=== PATIENT | male | born 1935 | race Caucasian/White ===

== ENCOUNTER 2018-09-01 11:07 | Inpatient (IN) | payer MEDICARE, OTHER ==
[~2018-09-01] VITALS: Ht 177.8 cm; Wt 88.5 kg
--- NOTE | 2018-09-01 11:48 | NUR ---
JUST CAME FROM [facility] AND THEY DX HIM WITH A BLOOD CLOT IN LEFT LEG
[2018-09-01] MEDS ORDERED: enoxaparin 100mg/ml syringe SUBCUT ONE (13:00)
[2018-09-01] MEDS ORDERED: ATOR40TA PO (13:13)
[2018-09-01] MEDS ORDERED: ASPI-1265 PO (13:13)
[2018-09-01] MEDS ORDERED: MELO7.5T12 PO (13:14)
[2018-09-01] MEDS ORDERED: PANT-47 PO (13:14)
[2018-09-01] MEDS ORDERED: METO25TA6 PO (13:14)
[2018-09-01] MEDS ORDERED: FLO0.4C PO (13:15)
[2018-09-01 13:18] LABS: BASOPHILS # (AUTO) 0.1 X10'3 (0-0.2); BASOPHILS % (AUTO) 1.1 % (0-1); EOSINOPHILS # (AUTO) 0.1 X10'3 (0-0.9); EOSINOPHILS % (AUTO) 2.1 % (0-6); HEMATOCRIT 37.5 % (42.0-52.0); HEMOGLOBIN 12.7 g/dl (14.0-17.9); LYMPHOCYTES # (AUTO) 1.8 X10'3 (1.1-4.8); LYMPHOCYTES % (AUTO) 26.6 % (21-51); MEAN CORPUSCULAR HEMOGLOBIN 31.8 PG (27.0-31.0); MEAN CORPUSCULAR HGB CONC 33.8 g/dL (33.0-36.5); MEAN CORPUSCULAR VOLUME 94.1 FL (78-98); MEAN PLATELET VOLUME 7.1 FL (7.4-10.4); MONOCYTES # (AUTO) 0.4 X10'3 (0-0.9); MONOCYTES % (AUTO) 6.1 % (2-12); NEUTROPHILS # (AUTO) 4.3 X10'3 (1.8-7.7); NEUTROPHILS % (AUTO) 64.1 % (42-75); PLATELET COUNT 322 X10'3 (140-440); RED BLOOD COUNT 3.98 X10'6 (4.70-6.10); RED CELL DISTRIBUTION WIDTH 13.5 % (11.5-14.5); WHITE BLOOD COUNT 6.7 X10'3 (4.5-11.0)
[2018-09-01 13:35] LABS: ALANINE AMINOTRANSFERASE 15 U/L (12-78); ALBUMIN 3.3 G/DL (3.4-5.0); ALBUMIN/GLOBULIN RATIO 0.8 (1.1-1.5); ALKALINE PHOSPHATASE 77 IU/L (46-116); ANION GAP 9 (8-16); ASPARTATE AMINO TRANSFERASE 20 U/L (10-37); BILIRUBIN,TOTAL 0.4 MG/DL (0.1-1.0); BLOOD UREA NITROGEN 23 MG/DL (7-18); BUN/CREATININE RATIO 14.6 (5.4-32.0); CALCIUM 8.9 MG/DL (8.5-10.1); CHLORIDE 106 MMOL/L (99-107); CREATININE 1.58 MG/DL (0.60-1.10); GLUCOSE 98 MG/DL (70-104); POTASSIUM 4.5 MMOL/L (3.5-5.1); SODIUM 139 MMOL/L (135-145); TOTAL CARBON DIOXIDE 23.7 MMOL/L (24-32); TOTAL PROTEIN 7.7 G/DL (6.4-8.2); eGFR 42 ML/MIN
[2018-09-01 13:37] LABS: PARTIAL THROMBOPLASTIN TIME 27 SECONDS (22-32)
[2018-09-01] MEDS ORDERED: bisacodyl 10mg suppository rectal RC PRN (14:10)
[2018-09-01] MEDS ORDERED: potassium Cl 20 mEq SR tablet PO PRN ×2 (14:10)
[2018-09-01] MEDS ORDERED: HYDROcodone/acetaminophen 5mg/325mg tablet PO PRN (14:10)
[2018-09-01] MEDS ORDERED: magnesium hydroxide 30ml (MOM) UD suspension PO PRN (14:10)
[2018-09-01] MEDS ORDERED: ondansetron/PF 4mg/2ml inj IV PRN (14:10)
[2018-09-01] MEDS ORDERED: magnesium 2GM in 50ml NS 50 ML IV PRN (14:10)
[2018-09-01] MEDS ORDERED: acetaminophen 325mg tablet PO PRN (14:10)
[2018-09-01] MEDS ORDERED: morphine 2 MG/ML inj. syringe IV PRN ×2 (14:10)
[2018-09-01] MEDS ORDERED: potassium Cl 40MEQ/NS 500ml 500 ML IV PRN ×2 (14:10)
[2018-09-01] MEDS ORDERED: mag hydrox/Alum hydrox/simeth 30ml oral suspension PO PRN (14:10)
[2018-09-01] MEDS ORDERED: magnesium Cl slow-release 64mg tablet PO PRN (14:10)
[2018-09-01] MEDS ORDERED: magnesium 4gm in 100ml NS 100 ML IV PRN (14:10)
--- NOTE | 2018-09-01 14:40 | NUR ---
Received report from Didi AVALOS in ER.
--- NOTE | 2018-09-01 14:44 | NUR ---
Patient arrived to tele floor-room 8691U.
[2018-09-01] MEDS: sodium chloride 0.45% 1,000 ML IV SCH (14:59)
[2018-09-01 15:00] VITALS: BP 151/74
[2018-09-01 16:20] VITALS: BP 161/123
[2018-09-01 16:25] VITALS: BP 163/109
--- NOTE | 2018-09-01 17:41 | NUR ---
Chronic [place] catheter placed around 6 months ago due to low urine output. Patient and draining clear yellow urine, no complaints per patient. Addendum: 09/01/18 at 1743 by Deanna Shafer RN Amended: Links added.
--- NOTE | 2018-09-01 17:57 | NUR ---
Paged Echo to come do echo.
[2018-09-01 18:00] VITALS: BP 154/80
--- NOTE | 2018-09-01 18:16 | NUR ---
Problems reprioritized. Patient report given, questions answered & plan of care reviewed with Sil AVALOS/ Elly AVALOS.
--- NOTE | 2018-09-01 18:17 | NUR ---
Patient in room Problems reprioritized. Patient report given, questions answered & plan of care reviewed with ASYA AVALOS/DALE AVALOS.
[2018-09-01] MEDS: docusate sod 100mg capsule PO SCH (19:14)
[2018-09-01] MEDS: pantoprazole 40mg Tablet.DR PO SCH (19:15)
[2018-09-01] MEDS: tamsulosin 0.4mg capsule PO SCH (19:15)
[2018-09-01 22:00] VITALS: BP 126/77
[2018-09-02] MEDS: enoxaparin 30mg/0.3ml syringe SUBCUT SCH ×2 (00:46→13:15)
[2018-09-02] MEDS: enoxaparin 60mg/0.6ml syringe SUBCUT SCH ×2 (00:47→13:14)
[2018-09-02 02:00] VITALS: BP 124/72
[2018-09-02] MEDS: sodium chloride 0.45% 1,000 ML IV SCH ×3 (04:26→19:45)
[2018-09-02 05:22] LABS: BASOPHILS % (AUTO) 0.9 % (0-1); EOSINOPHILS # (AUTO) 0.2 X10'3 (0-0.9); EOSINOPHILS % (AUTO) 3.1 % (0-6); HEMATOCRIT 34.6 % (42.0-52.0); HEMOGLOBIN 11.5 g/dl (14.0-17.9); LYMPHOCYTES # (AUTO) 1.8 X10'3 (1.1-4.8); LYMPHOCYTES % (AUTO) 34.8 % (21-51); MEAN CORPUSCULAR HEMOGLOBIN 31.6 PG (27.0-31.0); MEAN CORPUSCULAR HGB CONC 33.3 g/dL (33.0-36.5); MEAN CORPUSCULAR VOLUME 95.1 FL (78-98); MEAN PLATELET VOLUME 7.3 FL (7.4-10.4); MONOCYTES # (AUTO) 0.4 X10'3 (0-0.9); MONOCYTES % (AUTO) 7.3 % (2-12); NEUTROPHILS # (AUTO) 2.8 X10'3 (1.8-7.7); NEUTROPHILS % (AUTO) 53.9 % (42-75); PLATELET COUNT 290 X10'3 (140-440); RED BLOOD COUNT 3.64 X10'6 (4.70-6.10); RED CELL DISTRIBUTION WIDTH 13.6 % (11.5-14.5); WHITE BLOOD COUNT 5.1 X10'3 (4.5-11.0)
[2018-09-02 05:33] LABS: ALBUMIN 2.7 G/DL (3.4-5.0); ANION GAP 9 (8-16); BLOOD UREA NITROGEN 22 MG/DL (7-18); BUN/CREATININE RATIO 13.3 (5.4-32.0); CALCIUM 8.2 MG/DL (8.5-10.1); CHLORIDE 108 MMOL/L (99-107); CREATININE 1.66 MG/DL (0.60-1.10); GLUCOSE 87 MG/DL (70-104); MAGNESIUM 1.9 MG/DL (1.5-2.4); POTASSIUM 4.1 MMOL/L (3.5-5.1); SODIUM 140 MMOL/L (135-145); TOTAL CARBON DIOXIDE 22.8 MMOL/L (24-32); eGFR 40 ML/MIN
[2018-09-02 06:00] VITALS: BP 121/65
--- NOTE | 2018-09-02 06:15 | NUR ---
[place] Medication Administration: For this medication-pass time frame, all medication were reviewed, dispensed, administered and documented per hospital policy by Elly AVALOS. [place] documentation: I have reviewed and agree with all interventions, assessments performed and documented by Elly AVALOS
--- NOTE | 2018-09-02 06:20 | NUR ---
Problems reprioritized. Patient report given, questions answered & plan of care reviewed with Noemi Alvarez.
[2018-09-02] MEDS: tamsulosin 0.4mg capsule PO SCH ×2 (07:55→19:45)
[2018-09-02] MEDS: pantoprazole 40mg Tablet.DR PO SCH ×2 (07:55→19:44)
[2018-09-02] MEDS: docusate sod 100mg capsule PO SCH ×2 (07:58→19:45)
[2018-09-02] MEDS: K and/or MAG REPLACEMENT MC SCH (08:02)
[2018-09-02 11:00] VITALS: BP 137/79
[2018-09-02 15:00] VITALS: BP 142/69
--- NOTE | 2018-09-02 18:15 | NUR ---
Problems reprioritized. Patient report given, questions answered & plan of care reviewed with Elmer AVALOS, .
[2018-09-02 22:00] VITALS: BP 134/77
[2018-09-03] MEDS: enoxaparin 30mg/0.3ml syringe SUBCUT SCH (00:08)
[2018-09-03] MEDS: enoxaparin 60mg/0.6ml syringe SUBCUT SCH (00:08)
[2018-09-03 02:00] VITALS: BP 159/72
[2018-09-03 05:07] LABS: BASOPHILS % (AUTO) 0.8 % (0-1); EOSINOPHILS # (AUTO) 0.2 X10'3 (0-0.9); EOSINOPHILS % (AUTO) 3.1 % (0-6); HEMATOCRIT 35.6 % (42.0-52.0); LYMPHOCYTES # (AUTO) 1.7 X10'3 (1.1-4.8); LYMPHOCYTES % (AUTO) 35.1 % (21-51); MEAN CORPUSCULAR HEMOGLOBIN 31.9 PG (27.0-31.0); MEAN CORPUSCULAR HGB CONC 33.7 g/dL (33.0-36.5); MEAN CORPUSCULAR VOLUME 94.7 FL (78-98); MONOCYTES # (AUTO) 0.3 X10'3 (0-0.9); NEUTROPHILS # (AUTO) 2.7 X10'3 (1.8-7.7); PLATELET COUNT 311 X10'3 (140-440); RED BLOOD COUNT 3.76 X10'6 (4.70-6.10); RED CELL DISTRIBUTION WIDTH 13.6 % (11.5-14.5)
[2018-09-03 05:17] LABS: ALBUMIN 2.7 G/DL (3.4-5.0); ANION GAP 10 (8-16); BLOOD UREA NITROGEN 22 MG/DL (7-18); BUN/CREATININE RATIO 13.8 (5.4-32.0); CALCIUM 8.6 MG/DL (8.5-10.1); CHLORIDE 107 MMOL/L (99-107); GLUCOSE 90 MG/DL (70-104); MAGNESIUM 1.8 MG/DL (1.5-2.4); SODIUM 139 MMOL/L (135-145); TOTAL CARBON DIOXIDE 22.5 MMOL/L (24-32); eGFR 41 ML/MIN
--- NOTE | 2018-09-03 06:12 | NUR ---
Problems reprioritized. Patient report given, questions answered & plan of care reviewed with Noemi Alvarez.
[2018-09-03 06:57] VITALS: BP 136/76
[2018-09-03] MEDS: pantoprazole 40mg Tablet.DR PO SCH (07:56)
[2018-09-03] MEDS: tamsulosin 0.4mg capsule PO SCH (07:56)
[2018-09-03] MEDS: K and/or MAG REPLACEMENT MC SCH (07:57)
[2018-09-03] MEDS: docusate sod 100mg capsule PO SCH (08:00)
[2018-09-03] MEDS ORDERED: APIX2.5T PO (10:23)
--- NOTE | 2018-09-03 10:58 | NUR ---
PAGER ID: [phone] MESSAGE: Room 3110R Mery Kelly. pt needs sign RX fro [facility] please, uses [id number]
[2018-09-03 11:00] VITALS: BP 125/80
--- NOTE | 2018-09-03 12:08 | NUR ---
pt discharged, stable, IV out, Tele box DCd, prescription written for patient to take to his pharmacy
== END 2018-09-03 11:49 | disposition home or self-care (01) | DRG 301 ==
LOC: ER 11:08 → EDBEDREQ 13:57 → PCU 3S 14:37
PROVIDERS: ADMIT Internal Medicine; ATTEND Internal Medicine
DX: I82.402 Acute embolism and thrombosis of unspecified deep veins of left lower extremity (principal); I25.10 Atherosclerotic heart disease of native coronary artery without angina pectoris; E78.5 Hyperlipidemia, unspecified; F03.90 Unspecified dementia, unspecified severity, without behavioral disturbance, psychotic disturbance, mood disturbance, and anxiety; N40.1 Benign prostatic hyperplasia with lower urinary tract symptoms; Z96.651 Presence of right artificial knee joint; Z86.718 Personal history of other venous thrombosis and embolism; Z86.711 Personal history of pulmonary embolism; Z95.5 Presence of coronary angioplasty implant and graft
CPT/HCPCS: 36415; 71045; 73564; 78582; 80048; 80053; 83735; 85025; 85610; 85730; 87070; 93306; 93970; 96376; 97116; 97161; 97530; 99285; A9539; A9540; G0378; J1650

== ENCOUNTER 2019-05-08 17:16 | Emergency (ER) | payer MEDICARE ==
[~2019-05-08] VITALS: Ht 177.8 cm; Wt 90.0 kg
[~2019-05-08 17:16] MED LIST: APIX2.5T PO; FLO0.4C PO; PANT-47 PO
[2019-05-08 18:49] LABS: COLOR,URINE YELLOW (Yellow); GLUCOSE, URINE NEGATIVE (Neg); KETONES,URINE NEGATIVE (Neg); LEUKOCYTE ESTERASE ,URINE SMALL (Neg); NITRITES, URINE NEGATIVE (Neg); OCCULT BLOOD,URINE MODERATE (Neg); PROTEIN,URINE TRACE mg/dl (Neg); UROBILINOGEN,URINE 0.2 E.U/dL (0.2-1.0)
[2019-05-08 19:09] LABS: BASOPHILS # (AUTO) 0.1 X10'3 (0-0.2); BASOPHILS % (AUTO) 1.1 % (0-1); EOSINOPHILS # (AUTO) 0.1 X10'3 (0-0.9); EOSINOPHILS % (AUTO) 1.1 % (0-6); HEMATOCRIT 41.2 % (42.0-52.0); HEMOGLOBIN 14.2 g/dl (14.0-17.9); LYMPHOCYTES % (AUTO) 19.5 % (21-51); MEAN CORPUSCULAR HEMOGLOBIN 32.6 PG (27.0-31.0); MEAN CORPUSCULAR HGB CONC 34.4 g/dL (33.0-36.5); MEAN CORPUSCULAR VOLUME 94.7 FL (78-98); MEAN PLATELET VOLUME 7.7 FL (7.4-10.4); MONOCYTES # (AUTO) 0.5 X10'3 (0-0.9); MONOCYTES % (AUTO) 9.4 % (2-12); NEUTROPHILS # (AUTO) 3.6 X10'3 (1.8-7.7); NEUTROPHILS % (AUTO) 68.9 % (42-75); PLATELET COUNT 170 X10'3 (140-440); RED BLOOD COUNT 4.35 X10'6 (4.70-6.10); RED CELL DISTRIBUTION WIDTH 13.1 % (11.5-14.5); WHITE BLOOD COUNT 5.2 X10'3 (4.5-11.0)
[2019-05-08 19:20] LABS: ALANINE AMINOTRANSFERASE 23 U/L (12-78); ALBUMIN 3.5 G/DL (3.4-5.0); ALBUMIN/GLOBULIN RATIO 0.9 (1.1-1.5); ALKALINE PHOSPHATASE 69 IU/L (46-116); ANION GAP 13 (8-16); ASPARTATE AMINO TRANSFERASE 25 U/L (10-37); BILIRUBIN,TOTAL 0.8 MG/DL (0.1-1.0); BLOOD UREA NITROGEN 23 MG/DL (7-18); BUN/CREATININE RATIO 12.6 (5.4-32.0); CALCIUM 8.4 MG/DL (8.5-10.1); CHLORIDE 101 MMOL/L (99-107); CREATININE 1.82 MG/DL (0.60-1.10); GLUCOSE 128 MG/DL (70-104); SODIUM 134 MMOL/L (135-145); TOTAL CARBON DIOXIDE 20.3 MMOL/L (24-32); TOTAL PROTEIN 7.4 G/DL (6.4-8.2); eGFR 36 ML/MIN
[2019-05-08 19:21] LABS: CLARITY,URINE SLIGHTLY CLOUDY (Clear); UA COLLECTION TYPE FOLEY CATH
[2019-05-08 19:22] LABS: BACTERIA,URINE FEW /HPF (Neg); SQUAMOUS EPITHELIAL CELL,UR FEW /LPF (FEW); URIC ACID CRYSTALS FEW /HPF (NEGATIVE); WBC,URINE 0-4 /HPF (0-4)
[2019-05-08 20:05] VITALS: BP 125/68
== END 2019-05-08 20:07 | disposition home or self-care (01) ==
LOC: ER 17:17
DX: R31.9 Hematuria, unspecified (principal); Z86.711 Personal history of pulmonary embolism; Z98.890 Other specified postprocedural states
CPT/HCPCS: 36415; 80053; 81001; 85025; 87077; 87088; 87186; 99283